=== PATIENT | female | born 1960 | race African-American/Black ===

== ENCOUNTER 2018-10-24 15:11 | Inpatient (IN) | payer MEDICAID, OTHER ==
[~2018-10-24] VITALS: Ht 157.5 cm; Wt 60.3 kg
[2018-10-24] MEDS ORDERED: SODIUM CHLORIDE 0.9% 500 ML IV ONE (15:29)
[2018-10-24] MEDS ORDERED: ONDANSETRON HCL 4MG/2ML INJ IV STA (15:29)
[2018-10-24] MEDS ORDERED: ASPIRIN 300MG SUPP PR ONE (15:45)
[2018-10-24 16:07] LABS: BASOPHILS % 0.7 % (0.0-2.0); EOSINOPHILS % 0.6 % (0.0-5.0); MEAN CORPUSCULAR HEMOGLOBIN 21.3 pg (28.0-32.0); MEAN CORPUSCULAR VOLUME 72.2 fL (81.0-99.0); MEAN PLATELET VOLUME 7.6 fl (7.4-10.4); MONOCYTES % 9.3 % (2.0-8.0); NEUTROPHILS % 70.4 % (40.0-76.0); PLATELET 493 x1000/uL (130-400); RED BLOOD CELL COUNT 2.45 mill/uL (4.2-5.4); RED CELL DISTRIBUTION WIDTH 25.4 % (11.6-14.6)
[2018-10-24 16:13] LABS: CHLORIDE 108 mEq/L (98-107)
[2018-10-24 16:14] LABS: PROTHROMBIN TIME 10.7 sec (9.6-11.0)
[2018-10-24 16:17] LABS: ETHANOL BLOOD < 10 mg/dL; HEMATOCRIT. 17.7 % (36.0-48.0); HEMOGLOBIN. 5.2 g/dL (12.0-16.0)
[2018-10-24 16:19] LABS: LDL CHOLESTEROL 40 mg/dL (5-100)
[2018-10-24] MEDS ORDERED: LORAZEPAM 2MG/ML CPJ IV ONE (16:30)
[2018-10-24 16:48] LABS: PLATELET ESTIMATE SLIGHTLY INCREASED
[2018-10-24 17:15] LABS: BG BASE EXCESS 0.4 mmol/L (-2.0-2.0); BG DEOXYHEMOGLOBIN 9.9 % (0.0-5.0); BG FRACTION INSPIRED OXYGEN 28; BG HCO3 ACT 26.5 mmol/L (22.0-26.0); BG METHEMOGLOBIN 0.1 % (0.0-1.5); BG OXYGEN SATURATION 89.8 % (92.0-98.5); BG PCO2 52.9 mmHg (35.0-45.0); BG PH 7.318 (7.350-7.450); BG PO2 65.2 mmHg (75.0-100.0); BG SAMPLE SITE RIGHT RADIAL; BG TOTAL HEMOGLOBIN 5.4 g/dL (12.0-18.0); BG VENT MODE NASAL CANNULA
[2018-10-24 17:48] LABS: CLARITY URINE CLEAR (CLEAR); COLOR URINE YELLOW (YELLOW); KETONES URINE NEGATIVE (NEGATIVE); LEUKOCYTE ESTERASE URINE NEGATIVE (NEGATIVE); NITRITE URINE NEGATIVE (NEGATIVE); OCCULT BLOOD URINE NEGATIVE (NEGATIVE); PH URINE 6.5 (4.5-8.0); PROTEIN URINE NEGATIVE (NEGATIVE); SPECIFIC GRAVITY URINE 1.007 (1.005-1.030); UROBILINOGEN URINE 0.2 E.U./dL (0.2-1.0)
[2018-10-24] MEDS ORDERED: ACETAMINOPHEN 325MG TABLET PO PRN (18:00)
[2018-10-24] MEDS ORDERED: DOCUSATE SODIUM 100MG CAPSULE PO PRN (18:00)
[2018-10-24 18:17] LABS: *AMPHETAMINES SCREEN URINE NEGATIVE (NEGATIVE); *BARBITURATES SCREEN URINE NEGATIVE (NEGATIVE); CANNABINOID URINE SCREEN PRESUMTIVE POSITIVE (NEGATIVE); METHADONE URINE SCREEN NEGATIVE (NEGATIVE); OPIATES URINE SCREEN NEGATIVE (NEGATIVE); PHENCYCLIDINE URINE SCREEN NEGATIVE (NEGATIVE)
[2018-10-24 18:18] LABS: *BENZODIAZEPINES SCREEN URINE NEGATIVE (NEGATIVE); *COCAINE SCREEN URINE NEGATIVE (NEGATIVE)
[2018-10-25 05:54] LABS: BASOPHILS % 0.3 % (0.0-2.0); EOSINOPHILS % 0.3 % (0.0-5.0); HEMATOCRIT. 22.3 % (36.0-48.0); LYMPHOCYTES % 18.4 % (20.0-50.0); MEAN CORPUSCULAR HEMOGLOBIN 23.8 pg (28.0-32.0); MEAN CORPUSCULAR VOLUME 76.5 fL (81.0-99.0); MEAN PLATELET VOLUME 7.7 fl (7.4-10.4); PLATELET 414 x1000/uL (130-400); RED BLOOD CELL COUNT 2.92 mill/uL (4.2-5.4); RED CELL DISTRIBUTION WIDTH 24.8 % (11.6-14.6)
[2018-10-25 06:00] LABS: CHLORIDE 113 mEq/L (98-107); HEMOGLOBIN. 6.9 g/dL (12.0-16.0)
[2018-10-25 10:17] VITALS: BP 137/55
[2018-10-25 10:25] LABS: TOTAL IRON BINDING CAPACITY 564 ug/dL (250-450)
[2018-10-25] MEDS ORDERED: CLONIDINE 0.1MG TABLET PO PRN (11:15)
[2018-10-25 12:00] VITALS: BP 137/55
[2018-10-25] MEDS: NICOTINE 21MG PATCH TD SCH (12:18)
[2018-10-25] MEDS: PANTOPRAZOLE SODIUM 40 MG/VIAL IV SCH (12:18)
[2018-10-25] MEDS: DEXT 5%/0.45% NACL 1000ML 1,000 ML IV SCH (12:19)
[2018-10-25] MEDS: IRON SUCROSE COMPLEX 100 MG/5 ML ML IV SCH (13:19)
[2018-10-25 16:00] VITALS: BP 150/72
[2018-10-25] MEDS ORDERED: SORBITOL 70% SOLN 30ML PO SCH ×2 (16:00→20:00)
[2018-10-25 20:00] VITALS: BP 131/81
[2018-10-26] VITALS: BP 121/88
[2018-10-26] MEDS: DEXT 5%/0.45% NACL 1000ML 1,000 ML IV SCH (03:32)
[2018-10-26 04:00] VITALS: BP 150/77
[2018-10-26 06:39] LABS: BASOPHILS % 0.4 % (0.0-2.0); EOSINOPHILS % 0.6 % (0.0-5.0); HEMATOCRIT. 21.8 % (36.0-48.0); LYMPHOCYTES % 16.2 % (20.0-50.0); MEAN CORPUSCULAR HEMOGLOBIN 23.9 pg (28.0-32.0); MEAN CORPUSCULAR VOLUME 77.4 fL (81.0-99.0); MEAN PLATELET VOLUME 8.7 fl (7.4-10.4); MONOCYTES % 11.1 % (2.0-8.0); NEUTROPHILS % 71.7 % (40.0-76.0); PLATELET 383 x1000/uL (130-400); RED BLOOD CELL COUNT 2.82 mill/uL (4.2-5.4)
[2018-10-26 06:54] LABS: HEMOGLOBIN. 6.7 g/dL (12.0-16.0)
[2018-10-26 07:46] VITALS: BP 142/71
[2018-10-26] MEDS: NICOTINE 21MG PATCH TD SCH (08:20)
[2018-10-26] MEDS: PANTOPRAZOLE SODIUM 40 MG/VIAL IV SCH (08:21)
[2018-10-26] MEDS: IRON SUCROSE COMPLEX 100 MG/5 ML ML IV SCH (08:34)
[2018-10-26 11:42] VITALS: BP 156/76
[2018-10-26] MEDS ORDERED: SIMETHICONE 40 MG/0.6 ML 30ML ONE (14:15)
[2018-10-26] MEDS ORDERED: MIDAZOLAM HCL 5 MG/5 ML VIAL ONE (15:14)
[2018-10-26] MEDS ORDERED: FENTANYL CITRATE/PF 50MCG/ML 2ML VIAL ONE (15:14)
[2018-10-26] MEDS ORDERED: FENTANYL CITRATE/PF 50MCG/ML 2ML VIAL IV PRN (15:35)
[2018-10-26] MEDS ORDERED: MIDAZOLAM HCL 5 MG/5 ML VIAL IV PRN (15:36)
[2018-10-26 17:30] VITALS: BP 147/75
[2018-10-26] MEDS: FERROUS SULFATE 325MG TABLET PO SCH (19:10)
[2018-10-27] MEDS: DEXT 5%/0.45% NACL 1000ML 1,000 ML IV SCH (00:50)
[2018-10-27] MEDS: FERROUS SULFATE 325MG TABLET PO SCH ×2 (06:26→13:07)
[2018-10-27 06:41] LABS: BASOPHILS % 0.5 % (0.0-2.0); EOSINOPHILS % 1.3 % (0.0-5.0); HEMOGLOBIN. 7.1 g/dL (12.0-16.0); LYMPHOCYTES % 13.5 % (20.0-50.0); MEAN CORPUSCULAR HEMOGLOBIN 23.7 pg (28.0-32.0); MEAN CORPUSCULAR VOLUME 77.2 fL (81.0-99.0); MEAN PLATELET VOLUME 8.6 fl (7.4-10.4); MONOCYTES % 11.2 % (2.0-8.0); NEUTROPHILS % 73.5 % (40.0-76.0); PLATELET 431 x1000/uL (130-400); RED BLOOD CELL COUNT 2.98 mill/uL (4.2-5.4); RED CELL DISTRIBUTION WIDTH 24.9 % (11.6-14.6)
[2018-10-27 07:31] LABS: CHLORIDE 109 mEq/L (98-107)
[2018-10-27 08:00] VITALS: BP 129/65
[2018-10-27] MEDS: PANTOPRAZOLE SODIUM 40 MG/VIAL IV SCH (09:37)
[2018-10-27] MEDS: NICOTINE 21MG PATCH TD SCH (09:37)
[2018-10-27] MEDS: IRON SUCROSE COMPLEX 100 MG/5 ML ML IV SCH (09:41)
[2018-10-27] MEDS ORDERED: MAGNESIUM OXIDE 400MG TABLET PO SCH (11:30)
[2018-10-27] MEDS ORDERED: POTASSIUM CHLORIDE 20MEQ TABLET SR PO SCH (11:30)
[2018-10-27 12:00] VITALS: BP 137/76
[2018-10-27 13:35] VITALS: BP 137/76
== END 2018-10-27 15:55 | disposition home or self-care (01) | DRG 663 ==
LOC: ER 15:11 → SUPCPDRO 17:53 → 5WST 18:20 → EDBEDREQ 18:24 → EDBEDREQTM 18:24 → EDBEDREQSVC 10-25 08:34 → ENRESERV 10-25 08:59
PROVIDERS: ADMIT Hospitalist; ATTEND Hospitalist
PROC: 30233N1 Transfusion of Nonautologous Red Blood Cells into Peripheral Vein, Percutaneous Approach (ICD-10-PCS; 2018-10-24)
PROC: 0DB98ZX Excision of Duodenum, Via Natural or Artificial Opening Endoscopic, Diagnostic (ICD-10-PCS; principal; 2018-10-26)
PROC: 0DJD8ZZ Inspection of Lower Intestinal Tract, Via Natural or Artificial Opening Endoscopic (ICD-10-PCS; 2018-10-26)
DX: D50.9 Iron deficiency anemia, unspecified (principal); G93.40 Encephalopathy, unspecified; G90.8 Other disorders of autonomic nervous system; E44.1 Mild protein-calorie malnutrition; K31.9 Disease of stomach and duodenum, unspecified; F12.90 Cannabis use, unspecified, uncomplicated; F17.210 Nicotine dependence, cigarettes, uncomplicated; I10 Essential (primary) hypertension; K57.30 Diverticulosis of large intestine without perforation or abscess without bleeding; T39.395A Adverse effect of other nonsteroidal anti-inflammatory drugs [NSAID], initial encounter; Y92.89 Other specified places as the place of occurrence of the external cause; Z82.49 Family history of ischemic heart disease and other diseases of the circulatory system; Z68.24 Body mass index [BMI] 24.0-24.9, adult
CPT/HCPCS: 36415; 36600; 70551; 71045; 74176; 80305; 80320; 82375; 82728; 82805; 82962; 83540; 83550; 83605; 83721; 83735; 84484; 86850; 86900; 86920; 88305; 93005; 99151; 99152; 99291; C9113; J2250; J2405; J3010; J7040; P9016; G0480; G0500